=== PATIENT | female | born 1940 | race Caucasian/White ===

== ENCOUNTER 2019-09-12 10:19 | Outpatient (CLI) | payer MEDICARE, MEDICAID, SELFPAY ==
--- NOTE | ~2019-09-12 | US_ITS ---
EXAMINATION: US venous doppler UE EXAM DATE: 09/12/2019 11:28 INDICATION: Left upper extremity swelling. TECHNIQUE: Multiple grayscale, color flow, Doppler sonographic images of the left upper extremity vei ns obtained by technologist. Compression was performed where able. There is no prior study for jovita givens. FINDINGS: Left upper extremity: Jugular vein: ------------> Normal. Subclavian vein: --------> Normal. Axillary vein:------------> Normal. Brachial vein:-----------> Normal. Basilic vein: ------------> Normal. Cephalic vein: ----------> Thrombosed. Radial vein: ------------> Normal. Ulnar vein: > Normal. IMPRESSION: 1. Left cephalic superficial venous thrombosis. 2. No deep venous thrombosis of the left upper extremity. Reviewed, dictated and finalized at location A. 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
== END 2019-09-12 10:20 | disposition home or self-care (01) ==
LOC: ANHIMG 10:21
PROVIDERS: PCP Internal Medicine; Visit Provider Internal Medicine Hematology & Oncology
DX: M79.89 Other specified soft tissue disorders (principal)
CPT/HCPCS: 93971

== ENCOUNTER 2019-11-06 10:27 | Outpatient (CLI) | payer MEDICARE, MEDICAID, SELFPAY ==
[2019-11-06 10:42] LABS: Basophils Absolute Auto 0.1 K/mm3 (0.0-0.1); Basophils Percent Auto 0.8 % (0.2-1.2); Eosinophils Absolute Auto 0.5 K/mm3 (0-0.3); Eosinophils Percent Auto 5.5 % (0-4.4); Hematocrit 40.3 % (37.0-47.0); Hemoglobin 13.1 g/dL (12.0-15.0); Immature Granulocyte Absolute 0.02 K/mm3 (0.00-0.031); Immature Granulocyte Percent A 0.2 % (0-0.5); Lymphocytes Absolute Auto 1.31 K/mm3 (0.9-3.2); Lymphocytes Percent Auto 15.4 % (18.3-44.2); Mean Corpuscular HGB Conc 32.5 g/dl (32-36); Mean Corpuscular Hemoglobin 29.3 pg (26-34); Mean Corpuscular Volume 90.2 fl (80-100); Mean Platelet Volume 9.5 fl (7.4-10.4); Monocytes Absolute Auto 0.6 K/mm3 (0.1-0.6); Monocytes Percent Auto 7.2 % (2.6-8.5); Neutrophils Absolute Auto 6.1 K/mm3 (1.3-6.7); Neutrophils Percent Auto 70.9 % (45.5-73.1); Platelet Count Result 194 k/mm3 (150-375); Red Blood Count 4.47 M/mm3 (4.2-5.4); Red Cell Distribution Width 12.2 % (11.5-14.5); White Blood Count 8.5 K/mm3 (4.5-10.0)
[2019-11-06 11:30] LABS: Alanine Aminotransferase 17 U/L (4-35); Albumin Level 4.1 g/dL (3.5-5.1); Alkaline Phosphatase 88 U/L (38-126); Aspartate Amino Transferase 18 U/L (14-36); Bilirubin,Total 0.5 mg/dL (0.2-1.3); Blood Urea Nitrogen 46 mg/dL (7-17); Calcium 8.8 mg/dL (8.4-10.2); Carbon Dioxide 26 mmol/L (22-30); Chloride 97 mmol/L (98-107); Estimated Glomerular Filt Rate 34; Glucose 255 mg/dL (65-105); Lactate Dehydrogenase 357 U/L (313-618); Potassium 4.5 mmol/L (3.4-5.0); Sodium 134 mmol/L (137-145)
== END 2019-11-06 10:28 | disposition home or self-care (01) ==
PROVIDERS: PCP Internal Medicine; Visit Provider Internal Medicine Hematology & Oncology
DX: C91.10 Chronic lymphocytic leukemia of B-cell type not having achieved remission (principal)
CPT/HCPCS: 36415; 80053; 83615; 85025

== ENCOUNTER 2020-02-28 10:31 | Outpatient (CLI) | payer MEDICARE, MEDICAID, SELFPAY ==
[2020-02-28 11:26] LABS: Alanine Aminotransferase 16 U/L (4-35); Albumin Level 4.3 g/dL (3.5-5.1); Alkaline Phosphatase 93 U/L (38-126); Anion Gap 14.3 mmol/L (7-16); Aspartate Amino Transferase 21 U/L (14-36); Bilirubin,Total 0.5 mg/dL (0.2-1.3); Blood Urea Nitrogen 33 mg/dL (7-17); Calcium 9.2 mg/dL (8.4-10.2); Carbon Dioxide 28 mmol/L (22-30); Chloride 101 mmol/L (98-107); Cholesterol 158 mg/dL (0-200); Estimated Glomerular Filt Rate 36; Glucose 178 mg/dL (65-105); HDL Direct 37 mg/dL; Potassium 4.3 mmol/L (3.4-5.0); Sodium 139 mmol/L (137-145); Triglycerides 237 mg/dL (<150)
[2020-02-28 11:37] LABS: LDL Cholesterol Direct 84 mg/dL
[2020-02-28 11:56] LABS: Hemoglobin A1C 7.4 % (<5.7)
[2020-02-28 12:22] LABS: Free T4 Free Thyroxine 0.96 ng/mL (0.78-2.19)
[2020-02-28 12:46] LABS: Folic Acid > 20.0 ng/mL (2.76->20)
[2020-03-03 04:28] LABS: Thyroid Peroxidase Antibodies 15 IU/mL (<9)
[2020-03-03 07:20] LABS: Triiodothyronine T3 Free 2.9 pg/mL (2.3-4.2)
== END 2020-02-28 10:32 | disposition home or self-care (01) ==
LOC: ANHLAB 10:39
PROVIDERS: PCP Internal Medicine; Visit Provider Internal Medicine Endocrinology, Diabetes & Metabolism
DX: E11.65 Type 2 diabetes mellitus with hyperglycemia (principal); R53.83 Other fatigue; E78.5 Hyperlipidemia, unspecified
CPT/HCPCS: 36415; 80053; 80061; 82607; 82746; 83036; 84439; 84443; 84481; 86376

== ENCOUNTER 2020-02-29 11:06 | Outpatient (CLI) | payer MEDICARE, MEDICAID, SELFPAY ==
--- NOTE | ~2020-02-29 | CT_ITS ---
EXAMINATION: CT chest w con DATE: 02/29/2020 11:51 INDICATION: Lung nodule TECHNIQUE: Computed tomography (CT) of the chest was performed without intravenous contrast. Automate d exposure control and iterative reconstruction technique were employed. Exam dose: 307.38 mGy-cm to meli exam DLP. COMPARISON: None FINDINGS: There is a stable lateral segment middle lobe mass measuring up to approximately 5.5 x 11.5 mm maximal dimension, stable in size since 01/18/2019. This would favor benign diagnosis, although ve ry slow growing neoplasm is not definitively excluded. [address] examination is recommende d. Discoid scarring is again noted in the posteromedial left lower lobe. No pulmonary infiltrate or consolidation or interval pulmonary mass lesion is detected. No thoracic aortic aneurysm or dissection. The thyroid gland is of normal size, with homogeneous enha ncement. No hilar or mediastinal mass lesion or lymphadenopathy. No pericardial or pleural effusion. Lateral right third rib fracture. No suspicious osteolytic or osteoblastic lesions are noted. Diffuse hepatic steatosis. There is mild chronic subcapsular splenic fluid collection or soft tissue thickening. No adrenal mass lesion. IMPRESSION: Stable middle lobe mass since 01/18/2019; six-month CT follow-up is recommended. Reviewed, dictated and finalized at [facility]. Reviewed, dictated and finalized at location B.
== END 2020-02-29 11:07 | disposition home or self-care (01) ==
PROVIDERS: PCP Internal Medicine; Visit Provider Internal Medicine Hematology & Oncology
DX: R91.1 Solitary pulmonary nodule (principal)
CPT/HCPCS: 71260; Q9967

== ENCOUNTER 2020-03-06 09:54 | Outpatient (CLI) | payer MEDICARE, MEDICAID, SELFPAY ==
[2020-03-06 10:40] LABS: Basophils Absolute Auto 0.1 K/mm3 (0.0-0.1); Eosinophils Absolute Auto 0.2 K/mm3 (0-0.3); Eosinophils Percent Auto 2.4 % (0-4.4); Hematocrit 45.5 % (37.0-47.0); Hemoglobin 14.4 g/dL (12.0-15.0); Immature Granulocyte Absolute 0.02 K/mm3 (0.00-0.031); Immature Granulocyte Percent A 0.3 % (0-0.5); Lymphocytes Absolute Auto 1.24 K/mm3 (0.9-3.2); Lymphocytes Percent Auto 18.2 % (18.3-44.2); Mean Corpuscular HGB Conc 31.6 g/dl (32-36); Mean Corpuscular Hemoglobin 28.9 pg (26-34); Mean Corpuscular Volume 91.2 fl (80-100); Mean Platelet Volume 9.5 fl (7.4-10.4); Monocytes Absolute Auto 0.6 K/mm3 (0.1-0.6); Monocytes Percent Auto 8.4 % (2.6-8.5); Neutrophils Absolute Auto 4.7 K/mm3 (1.3-6.7); Neutrophils Percent Auto 69.7 % (45.5-73.1); Platelet Count Result 178 k/mm3 (150-375); Red Blood Count 4.99 M/mm3 (4.2-5.4); Red Cell Distribution Width 12.3 % (11.5-14.5); White Blood Count 6.8 K/mm3 (4.5-10.0)
[2020-03-06 12:33] LABS: Alanine Aminotransferase 16 U/L (4-35); Albumin Level 4.1 g/dL (3.5-5.1); Alkaline Phosphatase 92 U/L (38-126); Anion Gap 13.5 mmol/L (7-16); Aspartate Amino Transferase 19 U/L (14-36); Bilirubin,Total 0.5 mg/dL (0.2-1.3); Blood Urea Nitrogen 39 mg/dL (7-17); Calcium 8.9 mg/dL (8.4-10.2); Carbon Dioxide 27 mmol/L (22-30); Chloride 102 mmol/L (98-107); Estimated Glomerular Filt Rate 34; Glucose 215 mg/dL (65-105); Lactate Dehydrogenase 353 U/L (313-618); Potassium 4.5 mmol/L (3.4-5.0); Sodium 138 mmol/L (137-145)
[2020-03-06 12:53] LABS: Immunoglobulin A 80 mg/dL (70-400); Immunoglobulin G 700 mg/dL (700-1600); Immunoglobulin M 46 mg/dL (40-230)
== END 2020-03-06 09:55 | disposition home or self-care (01) ==
LOC: ANHLAB 09:57
PROVIDERS: PCP Internal Medicine; Visit Provider Internal Medicine Hematology & Oncology
DX: C91.10 Chronic lymphocytic leukemia of B-cell type not having achieved remission (principal)
CPT/HCPCS: 36415; 80053; 82784; 83615; 85025

== ENCOUNTER 2020-03-15 09:00 | Outpatient (CLI) | payer MEDICARE, MEDICAID, SELFPAY ==
--- NOTE | ~2020-03-15 | US_ITS ---
EXAMINATION: US venous doppler UE LT DATE: 03/15/2020 10:00 INDICATION: Superficial venous thrombosis of the left cephalic vein TECHNIQUE: Grayscale images without and with compression and Doppler images of the left upper extremi ty veins were obtained. COMPARISON: None. FINDINGS: The left internal jugular vein, subclavian vein, axillary vein, brachial vein, basilic vein, cephalic vein, radial vein, and ulnar vein are patent. IMPRESSION: 1. Patent left upper extremity veins with resolution of prior superficial venous thrombosis in the le ft cephalic vein. Reviewed, dictated and finalized at location A. IMPRESSION: 1. Patent left upper extremity veins with resolution of prior superficial venou s thrombosis in the left cephalic vein.
== END 2020-03-15 09:01 | disposition home or self-care (01) ==
PROVIDERS: PCP Internal Medicine; Visit Provider Internal Medicine Hematology & Oncology
DX: I82.612 Acute embolism and thrombosis of superficial veins of left upper extremity (principal)
CPT/HCPCS: 93971

== ENCOUNTER 2020-04-02 10:47 | Outpatient (CLI) | payer MEDICARE, MEDICAID, SELFPAY ==
[2020-04-02 11:18] LABS: Add Urine Microscopic? YES; Appearance Urine Cloudy (Clear); Bacteria Urine Trace /hpf; Bilirubin Urine Negative (Negative); Blood Urine Negative (Negative); Color Urine Yellow (Yellow); Glucose Urine UA Negative (Negative); Ketones Urine Negative (Negative); Leukocyte Esterase Ur 3+ LEU/UL (Negative); Mucus Urine Rare /lpf; Nitrate Urine Negative (Negative); Protein Urine Negative (Negative); Specific Grav Ur 1.013 (1.001-1.035); Squamous Epithelial Cell Urine Moderate /hpf (Few); Urobilinogen Urine Negative mg/dL (<2.0); WBC Clumps Urine Present /HPF; WBC Urine >75 /hpf
== END 2020-04-02 10:48 | disposition home or self-care (01) ==
LOC: ANHLAB 10:50
PROVIDERS: PCP Internal Medicine; Visit Provider Internal Medicine Endocrinology, Diabetes & Metabolism
DX: R30.0 Dysuria (principal)
CPT/HCPCS: 81001; 87077; 87086; 87088; 87186

== ENCOUNTER 2020-05-24 09:37 | Outpatient (CLI) | payer MEDICARE, MEDICAID, SELFPAY ==
--- NOTE | ~2020-05-24 | XR_ITS ---
EXAMINATION: XR hip BI 2V w AP pelvis DATE: 05/24/2020 09:53 INDICATION: Bilateral hip pain TECHNIQUE: Anteroposterior view of the pelvis and anteroposterior and frog-leg lateral views of the l eft hip and anteroposterior and frog-leg lateral views of the right hip and were obtained. COMPARISON: CT dated 01/18/2019 FINDINGS: Alignment is normal. Bilateral old healed fracture deformities at the left inferior and right superio r and inferior pubic rami. Sacral arches are intact with smoothly curved margins. No acute fracture o r suspected avascular necrosis. Mild bilateral hip osteoarthritis. Mild left and moderate right sacro iliac osteoarthritis. Severe lower lumbar spondylosis. A couple phleboliths in the left hemipelvis. 1 cm thin linear metallic density projecting over the right lower quadrant without correlate on the pr ior CT, potentially an ingested foreign body. IMPRESSION: 1. Scattered degenerative skeletal changes including mild bilateral hip osteoarthritis as detailed ab ove. No acute osseous abnormality. 2. 1 cm thin linear wire-like metallic density projecting over the right lower quadrant potentially a n ingested foreign body. Reviewed, dictated and finalized at location B. IMPRESSION: 1. Scattered degenerative skeletal changes including mild bilateral hip osteoar thritis as detailed above. No acute osseous abnormality. 2. 1 cm thin linear wire-like metallic density projecting over the right lower quadrant potentially an ingested foreign body.
== END 2020-05-24 09:38 | disposition home or self-care (01) ==
PROVIDERS: PCP Internal Medicine; Visit Provider Internal Medicine
DX: M54.5 Low back pain (principal)
CPT/HCPCS: 73521

== ENCOUNTER 2020-06-05 09:33 | Outpatient (CLI) | payer MEDICARE, MEDICAID, SELFPAY ==
[2020-06-05 09:52] LABS: Basophils Absolute Auto 0.1 K/mm3 (0.0-0.1); Basophils Percent Auto 0.9 % (0.2-1.2); Eosinophils Absolute Auto 0.3 K/mm3 (0-0.3); Eosinophils Percent Auto 4.7 % (0-4.4); Hematocrit 42.7 % (37.0-47.0); Hemoglobin 13.8 g/dL (12.0-15.0); Immature Granulocyte Absolute 0.02 K/mm3 (0.00-0.031); Immature Granulocyte Percent A 0.3 % (0-0.5); Lymphocytes Absolute Auto 1.45 K/mm3 (0.9-3.2); Lymphocytes Percent Auto 22.9 % (18.3-44.2); Mean Corpuscular HGB Conc 32.3 g/dl (32-36); Mean Corpuscular Hemoglobin 29.1 pg (26-34); Mean Corpuscular Volume 90.1 fl (80-100); Mean Platelet Volume 9.1 fl (7.4-10.4); Monocytes Absolute Auto 0.5 K/mm3 (0.1-0.6); Monocytes Percent Auto 8.5 % (2.6-8.5); Neutrophils Percent Auto 62.7 % (45.5-73.1); Platelet Count Result 215 k/mm3 (150-375); Red Blood Count 4.74 M/mm3 (4.2-5.4); Red Cell Distribution Width 11.9 % (11.5-14.5); White Blood Count 6.3 K/mm3 (4.5-10.0)
[2020-06-05 09:59] LABS: Blood Urea Nitrogen 44 mg/dL (8-26); Carbon Dioxide 28 mmol/L (22-30); Chloride 92 mmol/L (98-109); Estimated Glomerular Filt Rate 26; Glucose 195 mg/dL (70-105); Potassium 4.4 mmol/L (3.5-4.9); Sodium 132 mmol/L (138-146)
[2020-06-05 13:16] LABS: Alanine Aminotransferase 19 U/L (4-35); Albumin Level 4.2 g/dL (3.5-5.1); Alkaline Phosphatase 78 U/L (38-126); Anion Gap 12 mmol/L (8-16); Aspartate Amino Transferase 24 U/L (14-36); Bilirubin,Total 0.7 mg/dL (0.2-1.3); Blood Urea Nitrogen 49 mg/dL (7-17); Calcium 9.3 mg/dL (8.4-10.2); Carbon Dioxide 30 mmol/L (22-30); Chloride 91 mmol/L (98-107); Estimated Glomerular Filt Rate 27; Glucose 192 mg/dL (65-105); Lactate Dehydrogenase 387 U/L (313-618); Potassium 4.4 mmol/L (3.4-5.0); Sodium 133 mmol/L (137-145)
== END 2020-06-05 09:34 | disposition home or self-care (01) ==
PROVIDERS: PCP Internal Medicine; Visit Provider Internal Medicine Hematology & Oncology
DX: C83.00 Small cell B-cell lymphoma, unspecified site (principal)
CPT/HCPCS: 36415; 80048; 80053; 83615; 85025

== ENCOUNTER 2020-06-17 09:35 | Outpatient (CLI) | payer MEDICARE, MEDICAID, SELFPAY ==
--- NOTE | ~2020-06-17 | XR_ITS ---
EXAMINATION: XR abdomen w oblique DATE: 06/17/2020 10:02 INDICATION: Foreign body in the right lower quadrant of the abdomen TECHNIQUE: AP and left and right oblique views of the abdomen and pelvis were obtained. COMPARISON: 05/24/2020 FINDINGS: The thin wire-like metallic foreign body previously project over the right lower quadrant is no longe r visualized suggesting this is either external to the patient or within the colon and having now pas sed with the stool. Normal bowel gas pattern. Gas scattered degenerative skeletal changes in the spin e, sacroiliac and hip joints as previously detailed. Couple phleboliths in the left hemipelvis. IMPRESSION: 1. Previously seen thin wire-like metallic foreign body no longer visualized suggesting this was eith er external to the patient or within the colon and having now passed with the stool. Reviewed, dictated and finalized at location A. 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 Previously seen thin wire-like metallic foreign body no longer visualized huston ggesting this was either external to the patient or within the colon and having now passed with the stool.
== END 2020-06-17 09:36 | disposition home or self-care (01) ==
PROVIDERS: PCP Internal Medicine; Visit Provider Internal Medicine
DX: T18.4XXA Foreign body in colon, initial encounter (principal)
CPT/HCPCS: 74021

== ENCOUNTER 2020-06-18 10:07 | Outpatient (CLI) | payer MEDICARE, MEDICAID, SELFPAY ==
[2020-06-18 11:05] LABS: Basophils Absolute Auto 0.1 K/mm3 (0.0-0.1); Basophils Percent Auto 0.8 % (0.2-1.2); Eosinophils Absolute Auto 0.3 K/mm3 (0-0.3); Eosinophils Percent Auto 4.9 % (0-4.4); Hematocrit 41.6 % (37.0-47.0); Hemoglobin 13.6 g/dL (12.0-15.0); Immature Granulocyte Absolute 0.01 K/mm3 (0.00-0.031); Immature Granulocyte Percent A 0.2 % (0-0.5); Lymphocytes Absolute Auto 1.38 K/mm3 (0.9-3.2); Lymphocytes Percent Auto 23.3 % (18.3-44.2); Mean Corpuscular HGB Conc 32.7 g/dl (32-36); Mean Corpuscular Hemoglobin 29.8 pg (26-34); Mean Corpuscular Volume 91.2 fl (80-100); Mean Platelet Volume 9.5 fl (7.4-10.4); Monocytes Absolute Auto 0.5 K/mm3 (0.1-0.6); Monocytes Percent Auto 9.1 % (2.6-8.5); Neutrophils Absolute Auto 3.7 K/mm3 (1.3-6.7); Neutrophils Percent Auto 61.7 % (45.5-73.1); Platelet Count Result 178 k/mm3 (150-375); Red Blood Count 4.56 M/mm3 (4.2-5.4); Red Cell Distribution Width 11.9 % (11.5-14.5); White Blood Count 5.9 K/mm3 (4.5-10.0)
[2020-06-18 11:19] LABS: Alanine Aminotransferase 22 U/L (4-35); Albumin Level 4.3 g/dL (3.5-5.1); Alkaline Phosphatase 68 U/L (38-126); Anion Gap 5 mmol/L (8-16); Aspartate Amino Transferase 25 U/L (14-36); Bilirubin,Total 0.5 mg/dL (0.2-1.3); Blood Urea Nitrogen 33 mg/dL (7-17); Calcium 9.4 mg/dL (8.4-10.2); Carbon Dioxide 32 mmol/L (22-30); Chloride 99 mmol/L (98-107); Cholesterol 160 mg/dL (0-200); Estimated Glomerular Filt Rate 33; Glucose 91 mg/dL (65-105); HDL Direct 40 mg/dL; Potassium 4.7 mmol/L (3.4-5.0); Sodium 136 mmol/L (137-145); Triglycerides 193 mg/dL (<150)
[2020-06-18 11:30] LABS: LDL Cholesterol Direct 81 mg/dL
[2020-06-18 11:39] LABS: Creatinine Urine 67.7 mg/dL
[2020-06-18 11:43] LABS: MALB Creatinine Ratio 11.8 mg/g (0-30)
[2020-06-18 13:37] LABS: Hemoglobin A1C 7.3 % (<5.7)
== END 2020-06-18 10:08 | disposition home or self-care (01) ==
PROVIDERS: PCP Internal Medicine; Visit Provider Internal Medicine Endocrinology, Diabetes & Metabolism
DX: E11.22 Type 2 diabetes mellitus with diabetic chronic kidney disease (principal)
CPT/HCPCS: 36415; 80053; 80061; 82043; 83036; 85025

== ENCOUNTER 2020-08-26 09:48 | Outpatient (CLI) | payer MEDICARE, MEDICAID, SELFPAY ==
--- NOTE | ~2020-08-26 | CT_ITS ---
EXAMINATION:CT chest wo con DATE: 08/26/2020 10:42 INDICATION: Lung nodule. TECHNIQUE: Computed tomography (CT) of the chest was performed without intravenous contrast. Automate d exposure control and iterative reconstruction technique were employed. The dose-length product (DLP ) was 286.55 mGy-cm. COMPARISON: Chest CT 02/29/2020, 09/06/2018 FINDINGS: There is mild scarring at the lung apices. There is mild atelectasis bilaterally. Again see n are subpleural bands in left lower lobe. There is a 1.2 cm nodule in right middle lobe. No pleural effusion. The heart size is normal. There are coronary artery calcifications. No pericardial effusion . There is diffuse hepatic steatosis. There is mild thoracic spondylosis. IMPRESSION: 1. 1.2 cm pulmonary nodule, stable from 09/06/2018, likely benign. Reviewed, dictated and finalized at location B. 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
[2020-08-26 10:18] LABS: Estimated Glomerular Filt Rate 27
== END 2020-08-26 09:49 | disposition home or self-care (01) ==
LOC: ANHIMG 09:52
PROVIDERS: PCP Internal Medicine; Visit Provider Internal Medicine Hematology & Oncology
DX: R91.1 Solitary pulmonary nodule (principal)
CPT/HCPCS: 71250

== ENCOUNTER 2020-08-28 09:23 | Outpatient (CLI) | payer MEDICARE, MEDICAID, SELFPAY ==
[2020-08-28 09:38] LABS: Basophils Absolute Auto 0.1 K/mm3 (0.0-0.1); Basophils Percent Auto 1.1 % (0.2-1.2); Eosinophils Absolute Auto 0.2 K/mm3 (0-0.3); Eosinophils Percent Auto 4.4 % (0-4.4); Hematocrit 43.1 % (37.0-47.0); Immature Granulocyte Absolute 0.02 K/mm3 (0.00-0.031); Immature Granulocyte Percent A 0.4 % (0-0.5); Lymphocytes Absolute Auto 1.61 K/mm3 (0.9-3.2); Lymphocytes Percent Auto 29.7 % (18.3-44.2); Mean Corpuscular HGB Conc 32.5 g/dl (32-36); Mean Corpuscular Hemoglobin 29.3 pg (26-34); Mean Corpuscular Volume 90.2 fl (80-100); Mean Platelet Volume 9.3 fl (7.4-10.4); Monocytes Absolute Auto 0.4 K/mm3 (0.1-0.6); Monocytes Percent Auto 7.7 % (2.6-8.5); Neutrophils Absolute Auto 3.1 K/mm3 (1.3-6.7); Neutrophils Percent Auto 56.7 % (45.5-73.1); Platelet Count Result 201 k/mm3 (150-375); Red Blood Count 4.78 M/mm3 (4.2-5.4); Red Cell Distribution Width 12.2 % (11.5-14.5); White Blood Count 5.4 K/mm3 (4.5-10.0)
[2020-08-28 12:28] LABS: Alanine Aminotransferase 21 U/L (4-35); Albumin Level 4.1 g/dL (3.5-5.1); Alkaline Phosphatase 81 U/L (38-126); Anion Gap 8 mmol/L (8-16); Aspartate Amino Transferase 23 U/L (14-36); Bilirubin,Total 0.6 mg/dL (0.2-1.3); Blood Urea Nitrogen 48 mg/dL (7-17); Calcium 9.1 mg/dL (8.4-10.2); Carbon Dioxide 28 mmol/L (22-30); Chloride 101 mmol/L (98-107); Estimated Glomerular Filt Rate 31; Glucose 150 mg/dL (65-105); Potassium 4.6 mmol/L (3.4-5.0); Sodium 137 mmol/L (137-145)
== END 2020-08-28 09:24 | disposition home or self-care (01) ==
PROVIDERS: Family Provider Internal Medicine Cardiovascular Disease; PCP Internal Medicine; Visit Provider Internal Medicine Hematology & Oncology
DX: R91.1 Solitary pulmonary nodule (principal)
CPT/HCPCS: 36415; 80053; 85025

== ENCOUNTER 2020-09-20 09:14 | Outpatient (CLI) | payer MEDICARE, MEDICAID, SELFPAY ==
[2020-09-20 09:59] LABS: Alanine Aminotransferase 21 U/L (4-35); Alkaline Phosphatase 61 U/L (38-126); Anion Gap 8 mmol/L (8-16); Aspartate Amino Transferase 24 U/L (14-36); Bilirubin,Total 0.5 mg/dL (0.2-1.3); Blood Urea Nitrogen 55 mg/dL (7-17); Calcium 8.8 mg/dL (8.4-10.2); Carbon Dioxide 25 mmol/L (22-30); Chloride 104 mmol/L (98-107); Cholesterol 162 mg/dL (0-200); Estimated Glomerular Filt Rate 27; Glucose 161 mg/dL (65-105); HDL Direct 42 mg/dL; Potassium 4.9 mmol/L (3.4-5.0); Sodium 137 mmol/L (137-145); Triglycerides 216 mg/dL (<150)
[2020-09-20 10:00] LABS: Hemoglobin A1C 8.2 % (<5.7)
[2020-09-20 10:10] LABS: LDL Cholesterol Direct 83 mg/dL
[2020-09-20 10:16] LABS: MALB Creatinine Ratio 6.7 mg/g (0-30); Microalbumin Urine Random 6.8 mg/L (0-16.7)
== END 2020-09-20 09:15 | disposition home or self-care (01) ==
PROVIDERS: PCP Internal Medicine; Visit Provider Internal Medicine Endocrinology, Diabetes & Metabolism
DX: E11.22 Type 2 diabetes mellitus with diabetic chronic kidney disease (principal); E78.5 Hyperlipidemia, unspecified
CPT/HCPCS: 36415; 80053; 80061; 82043; 83036

== ENCOUNTER 2020-10-31 09:31 | Outpatient (CLI) | payer MEDICARE, MEDICAID, SELFPAY | END 2020-10-31 09:32 | disposition home or self-care (01) | LOC: ANHAUDIO 09:33 | PROVIDERS: PCP Internal Medicine; Visit Provider Internal Medicine | DX: H91.93 Unspecified hearing loss, bilateral (principal) | CPT/HCPCS: 99199 ==